=== PATIENT | female | born 2000 | race Caucasian/White ===

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

== ENCOUNTER 2022-03-05 00:47 | Emergency (ER) | payer BC ==
--- NOTE | 2022-03-05 02:11 | NUR ---
CALLED PT TO TRIAGE ROOM. NO ANSWER
--- NOTE | 2022-03-05 02:40 | NUR ---
called for triage no answer
== END 2022-03-05 02:42 | disposition left against medical advice (07) ==
LOC: ER 01:00
DX: Z53.21 Procedure and treatment not carried out due to patient leaving prior to being seen by health care provider (principal)

== ENCOUNTER 2024-06-30 10:20 | Emergency (ER) | payer BC ==
[~2024-06-30] VITALS: Ht 167.6 cm; Wt 65.8 kg
[2024-06-30 10:40] VITALS: BP 108/68; TEMP 99.2; O2SAT 99
[2024-06-30] MEDS ORDERED: ACETAMINOPHEN ES 500 MG TABLET ONE (11:14)
[2024-06-30] MEDS: ACETAMINOPHEN 325 MG TABLET PO ONE (11:18)
[2024-06-30 11:23] LABS: PREGNANCY TEST URINE QUAL NEGATIVE (NEGATIVE)
[2024-06-30] MEDS ORDERED: GUAIFENESIN/D-METHORPHAN HB 5 ML UDC ONE (11:54)
[2024-06-30] MEDS ORDERED: KETOROLAC TROMETHAMINE INJ 30 MG/ML VIAL ONE (11:54)
[2024-06-30] MEDS ORDERED: LIDOCAINE VISCOUS 2% UD 15 ML UDC ONE (11:54)
[2024-06-30] MEDS: LIDOCAINE VISCOUS 2% UD 15 ML UDC MM ONE (12:02)
[2024-06-30] MEDS: KETOROLAC TROMETHAMINE INJ 30 MG/ML VIAL IM ONE (12:02)
[2024-06-30] MEDS: GUAIFENESIN/D-METHORPHAN HB 5 ML UDC PO ONE (12:03)
[2024-06-30] MEDS ORDERED: GUAI-1105 PO (12:36)
== END 2024-06-30 12:50 | disposition home or self-care (01) ==
LOC: ER 10:30
DX: J02.9 Acute pharyngitis, unspecified (principal); R05.9 Cough, unspecified; R50.9 Fever, unspecified; Z88.1 Allergy status to other antibiotic agents
CPT/HCPCS: 99284; 71045; 96372; 84703; J1885